=== PATIENT | female | born 1965 | race Caucasian/White ===

== ENCOUNTER 2020-05-09 07:34 | Outpatient (CLI) | payer OTHER, SELFPAY ==
--- NOTE | ~2020-05-09 | MM_ITS ---
EXAMINATION: MM screening dina BI w [facility]per HISTORY: Screening mammogram TECHNIQUE: Craniocaudal and mediolateral oblique 3-D tomosynthesis images were obtained and synthetic 2-D images were generated. CAD analysis was submitted and interpreted. COMPARISON: 01/04/2018, 11/19/2015, 10/28/2012, 06/24/2010, 05/18/2008 bilateral digital screening mammogram examinations BREAST PARENCHYMAL COMPOSITION: The breasts are heterogeneously dense, which may obscure small masses . FINDINGS: There is chronic fibroglandular asymmetry. There is no evidence of suspicious mass, calcifi cation, or architectural distortion to suggest malignancy in either breast. There has been no suspici ous interval change. IMPRESSION: 1. No mammographic evidence of malignancy. 2. Recommend routine screening mammography in one year. BI-RADS Category 2: Benign finding(s). Reviewed, dictated and finalized at location A. [employer]IST
== END 2020-05-09 07:35 | disposition home or self-care (01) ==
LOC: ANHIMG 07:41
PROVIDERS: Visit Provider Obstetrics & Gynecology
DX: Z12.31 Encounter for screening mammogram for malignant neoplasm of breast (principal)
CPT/HCPCS: 77063; 77067